=== PATIENT | male | born 1950 | race Caucasian/White ===

== ENCOUNTER → 2018-05-03 | Day surgery (SDC) | payer MEDICARE, BC ==
[~2018-05-03] MED LIST: BUPIVACAINE HCL 0.5 % INJ/PF 30 ML SDV ONE; LIDOCAINE 1% INJ-PF (10 MG/ML) 30 ML SDV ONE; METHYLPREDNISOLONE ACETATE INJ 40 MG/1 ML ML ONE
--- NOTE | 2018-05-03 14:57 | RADIOLOGY REPORT (SQ) ---
EXAM DESCRIPTION: FLUORO/NEEDLE PLACEMENT; INJECT/ASPIR HIP/SHLDR/KNEE COMPLETED DATE/TIME: 05/03/2018 2:37 pm REASON FOR STUDY: M16.11 UNILATERAL PRIMARY OSTEOARTHRITIS, RIGHT HIP M16.11 UNILATERAL PRIMARY OST EOARTHRITIS, RIGHT HIP COMPARISON: None. FLUOROSCOPY TIME: 0.3 minutes 1 digital right hip fluoroscopic radiographic saved to PACS. LIMITATIONS: None. PROCEDURE: SITE OF INJECTION: Right hip joint LOCALIZING CONTRAST TYPE AND DOSE: 1 mL of Omnipaque 300 MEDICATION TYPE AND DOSE: 80 mg of Depo-Medrol, 5 mL of dilute 0.5% bupivacaine Using local anesthesia and sterile technique with fluoroscopic guidance, the needle was advanced into the joint. Iodinated contrast was injected to verify intraarticular placement. This was followed by therapeutic injection of the indicated medications. The needle was removed. There were no immediat e complications. Fluoroscopic images demonstrate high-grade right hip joint space narrowing with femoral head articula r surface sclerosis and subcortical cyst formation. No articular surface collapse of the femoral hea d Preprocedure pain level: 8/10. Postprocedure pain level: 2/10. IMPRESSION: THERAPEUTIC INJECTION OF THE RIGHT HIP JOINT ABOVE. COMMENT: Patient medication list reviewed: Yes- Quality ID# [id number]:Eligible professional attests to doc umenting in the medical record they obtained, updated, or reviewed the patient's current medications. . Quality ID 145: Final reports for procedures using fluoroscopy that document radiation exposure marcy jaret, or exposure time and number of fluorographic images (if radiation exposure indices are not avail able) TECHNICAL DOCUMENTATION: JOB ID: [id number] [employer]- All Rights Reserved Reading location - IP/workstation name: [facility]
--- NOTE | 2018-05-03 14:57 | RADIOLOGY REPORT (SQ) ---
EXAM DESCRIPTION: FLUORO/NEEDLE PLACEMENT; INJECT/ASPIR HIP/SHLDR/KNEE COMPLETED DATE/TIME: 05/03/2018 2:37 pm REASON FOR STUDY: M16.11 UNILATERAL PRIMARY OSTEOARTHRITIS, RIGHT HIP M16.11 UNILATERAL PRIMARY OST EOARTHRITIS, RIGHT HIP COMPARISON: None. FLUOROSCOPY TIME: 0.3 minutes 1 digital right hip fluoroscopic radiographic saved to PACS. LIMITATIONS: None. PROCEDURE: SITE OF INJECTION: Right hip joint LOCALIZING CONTRAST TYPE AND DOSE: 1 mL of Omnipaque 300 MEDICATION TYPE AND DOSE: 80 mg of Depo-Medrol, 5 mL of dilute 0.5% bupivacaine Using local anesthesia and sterile technique with fluoroscopic guidance, the needle was advanced into the joint. Iodinated contrast was injected to verify intraarticular placement. This was followed by therapeutic injection of the indicated medications. The needle was removed. There were no immediat e complications. Fluoroscopic images demonstrate high-grade right hip joint space narrowing with femoral head articula r surface sclerosis and subcortical cyst formation. No articular surface collapse of the femoral hea d Preprocedure pain level: 8/10. Postprocedure pain level: 2/10. IMPRESSION: THERAPEUTIC INJECTION OF THE RIGHT HIP JOINT ABOVE. COMMENT: Patient medication list reviewed: Yes- Quality ID# [id number]:Eligible professional attests to doc umenting in the medical record they obtained, updated, or reviewed the patient's current medications. . Quality ID 145: Final reports for procedures using fluoroscopy that document radiation exposure marcy jaret, or exposure time and number of fluorographic images (if radiation exposure indices are not avail able) TECHNICAL DOCUMENTATION: JOB ID: [id number] [employer]- All Rights Reserved Reading location - IP/workstation name: [facility]
== END ==
LOC: RAD 13:37
PROVIDERS: ATTEND Orthopaedic Surgery
DX: M16.11 Unilateral primary osteoarthritis, right hip (principal)
CPT/HCPCS: 20610; 77002; J3490 ×2; J1020

== ENCOUNTER 2018-08-29 12:34 | Emergency (ER) | payer MEDICARE, BC ==
--- NOTE | 2018-08-29 12:51 | ER Document Report ---
ED Cardiac - General Stated Complaint: WEAKNESS Time Seen by Provider: 08/29/18 12:41 Primary Care Provider: ERIK CLEVELAND MD [Primary Care Provider] - Follow up as needed Notes: 68-year-old male with a history of coronary artery disease aortic stenosis presents to the ER via EMS for low heart rate. The patient stated he has been feeling poorly for the last week. He states he felt weak he denied any chest pain or shortness of breath. 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 Stewart. Dr. Stewart found that he had a third-degree AV block. The patient was being transferred to [facility] when he decompens ated and had to come to the nearest facility. The patient's heart rate went low and he had to be given epinephrine. Patient now is doing better. Again he denies any chest pain or shortness of breath. TRAVEL OUTSIDE OF THE [place] IN LAST 30 DAYS: No - Related Data Allergies/Adverse Reactions: No Known Allergies Allergy (Unverified 08/29/18 13:07) Past Medical History - Social History Smoking Status: Current Every Day Smoker Family History: CAD Review of Systems - Review of Systems Neurological/Psychological: Weakness - General global weakness -: Yes All other systems reviewed and negative Physical Exam - Vital signs Vitals: Resp Pulse Ox 13 97 08/29/18 12:40 08/29/18 12:40 - Notes Notes: GENERAL_APPEARANCE: well_nourished, alert, cooperative, no_acute_distress, no_obvious_discomfort. VITALS: reviewed, see vital signs table. HEAD: no_swelling\tenderness on the head. EYES: PERRL, EOMI, conjunctiva_clear. NOSE: no_nasal_discharge. MOUTH: (-)decreased moisture. THROAT: no_tonsilar_inflammation, no_airway_obstruction. no_lymphadenopathy NECK: supple, no_neck_tenderness, (-)thyromegaly. BACK: no_back_tenderness. CHEST_WALL: no_chest_tenderness. LUNGS: no_wheezing, no_rales, no_rhonchi, (-)accessory muscle use, good air exchange bilateral. HEART: Slow_rate, normal_rhythm, normal_S1, normal_S2, (-)S3, (-)S4, no_murmur, no_rub. ABDOMEN: soft, no_abd_tenderness, (-)guarding, (-)rebound, no_organomegaly, no_abd_masses. EXTREMITIES: good pulses in all_extremities, no_swelling\tenderness in the extremities, 2+_edema. SKIN: warm, diaphoretic, good_color, no_rash. MENTAL_STATUS: speech_clear, oriented_X_3, normal_affect, responds_appropriately to questions. 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 He was given epinephrine and is has went from 1/3 degree to a second-degree type II. Currently the patient is stable at this time we are drawing blood and I am contacting cardiology at the local PCI center. 08/29/18 13:56 Patient is done well for his here. He has been given an additional dose of atropine here. Otherwise his heart rate has been staying stable he is been in a second-degree type II block. Occasionally he will revert back to third-degree but that is temporary. I spoke with Dr. Herrera cardiology and Dr. Lc Bain ICU at [facility]. Patient has been accepted. We will fly him to there to minimize des-nd-kauoqoqb time. The last episode he went unresponsive in the ambulance. We will try to minimize that as much as we can. 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 Again they will be expecting him when he gets [facility]. - Vital Signs Vital signs: Temp Pulse Resp BP Pulse Ox 67 12 134/73 H 99 08/29/18 12:54 08/29/18 13:06 08/29/18 13:06 08/29/18 13:06 - Laboratory Result Diagrams: 08/29/18 12:20 08/29/18 12:20 Laboratory results interpreted by me: 08/29/18 12:20 Chloride 108 H Glucose 123 H Creatine Kinase 45 L Total Protein 6.0 L - EKG Interpretation by Me Rhythm: Other - Patient is going between the third degree AV block and a second- degree type II. Critical Care Note - Critical Care Note Total time excluding time spent on procedures (mins): 35 Discharge - Discharge Clinical Impression: Symptomatic bradycardia, Third degree AV block Condition: Good Disposition: [facility] Referrals: ERIK CLEVELAND MD [Primary Care Provider] - Follow up as needed
[2018-08-29] MEDS ORDERED: ATROPINE SULFATE INJ 1 MG/10 ML DISP.SYRIN IV ONE ×2 (12:52→12:58)
[2018-08-29] MEDS ORDERED: EPINEPHRINE INJ 1 MG/10 ML DISP.SYRIN ONE (12:52)
--- NOTE | 2018-08-29 13:13 | EKG REPORT ---
SEVERITY:- ABNORMAL ECG - ATRIAL FIBRILLATION, V-RATE 60-78 PROBABLE ANTEROSEPTAL INFARCT, OLD : Confirmed by: Jorge Morales MD 29-Aug-2018 13:13:01
[2018-08-29 13:40] LABS: INTERNATIONAL RATION (INR) 0.96; PROTHROMBIN TIME 13.3 SEC (11.4-15.4)
[2018-08-29 13:47] LABS: ABSOLUTE BASOPHILS # (AUTO) 0.1 10^3/uL (0.0-0.2); ABSOLUTE EOSINOPHILS # (AUTO) 0.1 10^3/uL (0.0-0.6); ABSOLUTE LYMPHOCYTES (AUTO) 2.3 10^3/uL (0.5-4.7); ABSOLUTE MONOCYTES (AUTO) 1.3 10^3/uL (0.1-1.4); BASOPHILS % (AUTO) 0.8 % (0-2); EOSINOPHILS % (AUTO) 1.2 % (0-6); HEMATOCRIT 36.2 % (37.9-51.0); LYMPHOCYTES % (AUTO) 19.5 % (13-45); MEAN CORPUSCULAR HEMOGLOBIN 31.1 pg (27.0-33.4); MEAN CORPUSCULAR HGB CONC 33.2 g/dL (32.0-36.0); MEAN CORPUSCULAR VOLUME 94 fl (80-97); MONOCYTES % (AUTO) 11.1 % (3-13); PLATELET COUNT 228 10^3/uL (150-450); RED BLOOD COUNT 3.87 10^6/uL (4.35-5.55); RED CELL DISTRIBUTION WIDTH 15.4 % (11.5-14.0); SEGMENTED NEUTROPHILS % (AUTO) 67.4 % (42-78); TOTAL CELLS COUNTED % (AUTO) 100 %; WHITE BLOOD COUNT 11.8 10^3/uL (4.0-10.5)
[2018-08-29 13:49] LABS: ALANINE AMINOTRANSFERASE 25 U/L (21-72); ALBUMIN 3.7 g/dL (3.5-5.0); ALKALINE PHOSPHATASE 86 U/L (38-126); ANION GAP 6 (5-19); ASPARTATE AMINO TRANSFERASE 18 U/L (17-59); BILIRUBIN,DIRECT 0.3 mg/dL (0.0-0.4); BILIRUBIN,TOTAL 0.4 mg/dL (0.2-1.3); BLOOD UREA NITROGEN 17 mg/dL (7-20); CALCIUM 9.1 mg/dL (8.4-10.2); CARBON DIOXIDE 28 mmol/L (22-30); CHLORIDE 108 mmol/L (98-107); CREATINE KINASE 45 U/L (55-170); GLUCOSE 123 mg/dL (75-110); POTASSIUM 4.4 mmol/L (3.6-5.0); SODIUM 142.2 mmol/L (137-145)
[2018-08-29 14:01] LABS: CREATINE KINASE MB 1.79 ng/mL (<4.55)
[2018-08-29 14:05] LABS: TROPONIN I 0.042 ng/mL
--- NOTE | 2018-08-29 14:14 | RADIOLOGY REPORT (SQ) ---
EXAM DESCRIPTION: CHEST SINGLE VIEW COMPLETED DATE/TIME: 08/29/2018 1:45 pm REASON FOR STUDY: cp COMPARISON: None. EXAM PARAMETERS: NUMBER OF VIEWS: One view. TECHNIQUE: Single frontal radiographic view of the chest acquired. RADIATION DOSE: NA LIMITATIONS: None. FINDINGS: LUNGS AND PLEURA: No opacities, masses or pneumothorax. No pleural effusion. MEDIASTINUM AND HILAR STRUCTURES: No masses. Contour normal. HEART AND VASCULAR STRUCTURES: Heart normal in size. Normal vasculature. BONES: No acute findings. HARDWARE: None in the chest. OTHER: Defibrillator pad projects over the left chest. IMPRESSION: No acute abnormality of the lungs in AP projection. TECHNICAL DOCUMENTATION: JOB ID: [id number] [employer]- All Rights Reserved Reading location - IP/workstation name: [email or web address]
[2018-08-29 14:54] VITALS: BP 108/66
--- NOTE | 2018-08-29 17:44 | EKG REPORT ---
SEVERITY:- ABNORMAL ECG - ATRIAL FIBRILLATION, V-RATE 43-58 PROBABLE ANTEROSEPTAL INFARCT, OLD : Confirmed by: Jorge Morales MD 29-Aug-2018 17:43:17
== END 2018-08-29 15:53 | disposition short-term general hospital (02) ==
LOC: ER 12:34
DX: I44.2 Atrioventricular block, complete (principal); R00.1 Bradycardia, unspecified; R53.1 Weakness; F17.200 Nicotine dependence, unspecified, uncomplicated
CPT/HCPCS: 93005; 99291; 96374; 36415; 82553; 82550; 83735; 85025; 85610; 80053; 84484; 71045; 93010; J0461